=== PATIENT | male | born 1990 | race Caucasian/White ===

== ENCOUNTER 2019-01-05 18:41 | Emergency (ER) | payer BC ==
[~2019-01-05 18:41] MED LIST: IBUP800T37 PO; KET10 PO; LOR5 PO; LOR5/325 PO
[2019-01-05 18:46] VITALS: BP 134/94
[2019-01-05] MEDS ORDERED: ALBU2.5V36 INH (18:52)
[2019-01-05] MEDS ORDERED: FLU44R INH (18:52)
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
[2019-01-05] MEDS ORDERED: DIPHTH/TETANUS/ACEL. PERTUSSIS IM ONLY ONE (19:50)
== END 2019-01-05 19:58 | disposition home or self-care (01) ==
LOC: ER 18:58
DX: S83.91XA Sprain of unspecified site of right knee, initial encounter (principal); V19.9XXA Pedal cyclist (driver) (passenger) injured in unspecified traffic accident, initial encounter
CPT/HCPCS: 73564; 90715; 96372; 99283